=== PATIENT | female | born 1950 | race Caucasian/White ===

== ENCOUNTER 2017-01-26 05:45 | Inpatient (IN) | payer OTHER ==
[~2017-01-26] VITALS: Ht 165.1 cm; Wt 129.3 kg
--- NOTE | 2017-01-26 05:45 | NUR ---
PT BIB RA WITH A C/O ABD PAIN THAT RADIATES TO THE CHEST AND LEFT ARM. PT IS NOT ABLE TO AMBULATED DUE TO A TORN LIGAMENT. PT HAS A LT KNEE IMMOBILIZER. PT IS ON THE MONITOR AND CONTINUOUS PULSE OX.
[2017-01-26 06:13] LABS: BASOPHILS % (AUTO) 0.2 % (0.0-2.0); EOSINOPHILS # (AUTO) 0.2 /CMM (0.0-0.7); EOSINOPHILS % (AUTO) 2.5 % (0.0-6.0); HEMATOCRIT 47 % (33-45); LYMPHOCYTES # (AUTO) 1.3 /CMM (0.8-4.8); LYMPHOCYTES % (AUTO) 19.5 % (20.0-44.0); MEAN CORPUSCULAR HEMOGLOBIN 30 PG (26.0-33.0); MEAN CORPUSCULAR HGB CONC 34 g/dl (31.0-36.0); MEAN CORPUSCULAR VOLUME 87 fL (82-100); MONOCYTES # (AUTO) 0.5 /CMM (0.1-1.30); MONOCYTES % (AUTO) 7.7 % (2.0-12.0); NEUTROPHILS # (AUTO) 4.8 /CMM (1.8-8.9); NEUTROPHILS % (AUTO) 70.1 % (43.0-81.0); PLATELET COUNT (AUTO) 263 /CMM (150-450); RDW COEFFICIENT OF VARIATION 13.9 (11.5-15.0); RED BLOOD CELL COUNT(AUTO) 5.44 MIL/uL (4.0-5.2); WHITE BLOOD COUNT (AUTO) 6.9 K/uL (4.3-11.0)
[2017-01-26 06:22] LABS: CALCIUM, SERUM 9.4 mg/dL (8.5-10.1); CARBON DIOXIDE 34 mmol/L (21-32); CHLORIDE 103 mmol/L (98-107); CREATININE 0.9 mg/dL (0.6-1.3); GLUCOSE 121 mg/dL (74-106); POTASSIUM 4.4 mmol/L (3.5-5.1); SODIUM SERUM 142 mmol/L (136-145); UREA NITROGEN, BLOOD 11 mg/dL (7-18)
[2017-01-26 06:31] LABS: INR 0.96 (0.87-1.13); PROTHROMBIN TIME 10.3 SECS (9.5-12.7); TROPONIN I < 0.017 ng/mL (0.00-0.056)
[2017-01-26] MEDS ORDERED: CT SWABBABLE VALVE TRANS SET 1 EA INFUS.SET MC ONE (06:32)
[2017-01-26] MEDS ORDERED: IOHEXOL-300 100 ML VIAL IV ONE (06:32)
[2017-01-26] MEDS ORDERED: IV NS 0.9% 250 ML IV ONE (06:32)
--- NOTE | 2017-01-26 06:32 | NUR ---
PT IS ON A MECHANICAL SOFT LEDA DIET PER [facility] PAPERWORK.
--- NOTE | 2017-01-26 06:40 | NUR ---
CXR IN PROGRESS AT THE BEDSIDE.
--- NOTE | 2017-01-26 06:43 | NUR ---
SENIOR USER EXPERIENCE ARCHITECT AT BEDSIDE
[2017-01-26] MEDS ORDERED: MAG-55 PO (06:44)
[2017-01-26] MEDS ORDERED: GLIP10TA11 PO (06:44)
[2017-01-26] MEDS ORDERED: METO50TA3 PO (06:44)
[2017-01-26] MEDS ORDERED: FERR325T28 PO (06:44)
[2017-01-26] MEDS ORDERED: GABA-532 PO (06:44)
[2017-01-26] MEDS ORDERED: HYDR-552 PO (06:44)
[2017-01-26] MEDS ORDERED: METF500T4 PO (06:44)
[2017-01-26] MEDS ORDERED: ASPI-991 PO (06:44)
[2017-01-26] MEDS ORDERED: LOPE-156 PO (06:44)
[2017-01-26] MEDS ORDERED: LEVO50TA PO (06:44)
[2017-01-26] MEDS ORDERED: CRAN500C5 PO (06:44)
[2017-01-26] MEDS ORDERED: ONDA4TAB8 PO (06:44)
[2017-01-26] MEDS ORDERED: LISI-607 PO (06:44)
[2017-01-26] MEDS ORDERED: DOCUSATE-SENNA (06:44)
--- NOTE | 2017-01-26 06:45 | NUR ---
PT LEFT FOR RADIOLOGY VIA [facility].
--- NOTE | 2017-01-26 07:01 | NUR ---
PT RETURNED FROM CT.
--- NOTE | 2017-01-26 07:21 | NUR ---
REPORT GIVEN TO FADIA FOR DEREK.
[2017-01-26] MEDS ORDERED: HYDROCODONE/APAP 5/325MG 1 EACH TABLET PO ONE (07:30)
--- NOTE | 2017-01-26 07:40 | NUR ---
Patient is resting comfortably in bed with eyes closed. Easily aroused. VSS
[2017-01-26] MEDS ORDERED: HYDROCODONE/APAP 5/325MG 1 EACH TABLET ONE (07:41)
--- NOTE | 2017-01-26 08:00 | NUR ---
PT MEDICATED ORDERED.
--- NOTE | 2017-01-26 08:27 | NUR ---
panel on-call paged
--- NOTE | 2017-01-26 08:28 | NUR ---
REPORT GIVEN TO ERIC OLSON FOR TELE [id number]
--- NOTE | 2017-01-26 09:05 | NUR ---
INTENSIVE CARE AMBULANCE PARAMEDIC ADM NOTES RECEIVED PATIENT FROM ER VIA GURNEY AOX3, ABLE TO MAKE NEEDS KNOWN. WITH ADM DX. OF CHEST PAIN, ATTACHED TO TELE MONITORING SR HR 66. ORIENTED HER TO HER ROOM, CALL LIGHT WITHIN REACH. DR. TORRE MADE AWARE PENDING ADMISSION ORDERS. NO BELONGINGS. WILL CONTINUE TO MONITOR.
[2017-01-26 09:15] VITALS: BP 146/79
[2017-01-26 10:00] VITALS: BP 146/79
[2017-01-26] MEDS ORDERED: LOPERAMIDE HCL (2 MG CAP) 2 MG CAPSULE PO PRN (10:00)
[2017-01-26] MEDS ORDERED: Medication Not On Formulary EA (Cranberry Extract (Cranberry Concentrate) 1,680 MG) PO SCH (10:00)
[2017-01-26 10:10] LABS: THYROID STIMULATING HORMONE 3.368 uIU/mL (0.358-3.74)
[2017-01-26] MEDS ORDERED: MAG HYDROX/AL HYDROX/SIMETH 30 ML UDC PO PRN ×2 (10:30→11:00)
--- NOTE | 2017-01-26 10:30 | NUR ---
COMMUNITY HEALTH WORKER NOTES SEE AND EXAMINED BY DR. SMITH WITH NEW ORDERS MADE AND CARRIED OUT.
[2017-01-26 10:33] LABS: MAGNESIUM 1.8 mg/dL (1.8-2.4); PHOSPHORUS 3.9 mg/dL (2.5-4.9)
--- NOTE | 2017-01-26 10:50 | NUR ---
HOTEL FRONT DESK AGENT NOTES SEEN AND EXAMINED BY DR. TORRE, ORDERS MADE AND CARRIED OUT.
[2017-01-26] MEDS ORDERED: MAGNESIUM HYDROXIDE 30 ML UDC PO PRN (11:00)
[2017-01-26] MEDS ORDERED: HYDROCODONE/APAP 5/325MG 1 EACH TABLET PO PRN (11:00)
[2017-01-26] MEDS ORDERED: ACETAMINOPHEN 325 MG TABLET PO PRN (11:00)
[2017-01-26] MEDS ORDERED: ONDANSETRON HCL/PF 4 MG/2 ML VIAL IVP PRN (11:00)
[2017-01-26] MEDS ORDERED: ZOLPIDEM TARTRATE 5 MG TABLET PO PRN (11:00)
[2017-01-26] MEDS ORDERED: Z GUARD REMEDY 2 OZ OINT TP PRN (11:00)
--- NOTE | 2017-01-26 11:00 | NUR ---
DIGITAL MARKETER NOTES ALL DUE MEDS GIVEN. ORDERED
[2017-01-26] MEDS: GABAPENTIN 100 MG CAPSULE PO SCH ×3 (11:01→16:17)
[2017-01-26] MEDS: FERROUS SULFATE (325 MG) 325 MG/TAB TABLET PO SCH (11:01)
[2017-01-26] MEDS: LEVOTHYROXINE SODIUM 50 MCG TABLET PO SCH (11:01)
[2017-01-26] MEDS: ASPIRIN EC 81 MG TABLET.DR PO SCH (11:01)
[2017-01-26] MEDS: LISINOPRIL (5MG) 5 MG TABLET PO SCH (11:01)
[2017-01-26] MEDS: METFORMIN 500 MG TABLET PO SCH ×2 (11:02→16:17)
[2017-01-26] MEDS: METOPROLOL TARTRATE 50 MG TABLET PO SCH ×2 (11:02→16:17)
[2017-01-26] MEDS: ENOXAPARIN SODIUM 40 MG/0.4 ML DISP.SYRIN SQ SCH (11:02)
[2017-01-26] MEDS: glipiZIDE 10 MG TABLET PO SCH ×2 (11:02→16:17)
[2017-01-26 12:00] VITALS: BP 138/70
[2017-01-26] MEDS ORDERED: ONDANSETRON 4 MG TAB.RAPDIS PO PRN (12:00)
[2017-01-26 16:00] VITALS: BP 130/68
[2017-01-26] MEDS ORDERED: BLOOD SUGAR DIAGNOSTIC 1 EACH STRIP IN ONE (17:00)
--- NOTE | 2017-01-26 18:27 | NUR ---
LEAD MANUFACTURING ENGINEER NOTES ALL NEEDS ATTENDED AND ANTICIPATED. ENDORSED TO INCOMING SHIFT FOR CONTINUITY OF CARE
--- NOTE | 2017-01-26 18:40 | NUR ---
QA TEST ANALYST NOTES C/O NO BM X 2 DAYS. MOM PRN GIVEN ORDERED.
--- NOTE | 2017-01-26 19:35 | NUR ---
RN OPENING NOTES RECEIVED REPORT FROM LORIN MABRY RN. FOUND Pt AWAKE, RESTING IN BED. ON TELE SR 60's. Pt IS A/OX3, VERBAL , ABLE TO MAKE NEEDS KNOWN. NO S/S OF ACUTE DISTRESS OR SOB NOTED. NO C/O SEVERE CHEST PAIN AT THIS TIME. DOES NOT WANT PAIN MEDS AT THIS TIME. IV ACCESS ON RAC #20G, SL. SAFETY MEASURES IN PLACE. BED LOW, LOCKED, HOB ELEVATED, SIDE RAILS UP, CALL LIGHT AND BEDSIDE TABLE WITHIN REACH. WILL CONTINUE TO MONITOR Pt THROUGHOUT THE NIGHT FOR SAFETY.
[2017-01-26 20:00] VITALS: BP 157/86
[2017-01-26] MEDS: HYDROCODONE/APAP 5/325MG 1 EACH TABLET PO PRN (23:55)
[2017-01-27] VITALS: BP 134/68
[2017-01-27 04:00] VITALS: BP 125/56
--- NOTE | 2017-01-27 06:37 | NUR ---
RN CLOSING NOTES NO SIGNIFICANT CHANGES DURING THE SHIFT. ALL NEEDS MET AND ATTENDED TO. SAFETY MEASURES IN PLACE. WILL ENDORSE TO DAYSHIFT RN FOR Pt's DEREK.
--- NOTE | 2017-01-27 07:30 | NUR ---
COMMUNITY DEVELOPMENT MANAGER NOTES RECEIVED PATIENT ASLEEP, RESTING COMFORTABLY IN BED, BREATHING EVEN AND NON LABORED, NO S/S OF ANY RESP DISTRESS OR DISCOMFORT NOTED. CALL LIGHT WITHIN REACH, BED IN LOWEST POSITION FOR SAFETY MEASURES. WILL CONTINUE TO MONITOR.
[2017-01-27 07:33] LABS: ALANINE AMINOTRANSFERASE 18 U/L (12-78); ALBUMIN 2.9 g/dL (3.4-5.0); ALKALINE PHOSPHATASE 77 U/L (46-116); ASPARTATE AMINOTRANSFERASE 25 U/L (15-37); BASOPHILS % (AUTO) 0.6 % (0.0-2.0); BILIRUBIN,TOTAL 0.5 mg/dL (0.2-1.0); CALCIUM, SERUM 9.4 mg/dL (8.5-10.1); CARBON DIOXIDE 28 mmol/L (21-32); CHLORIDE 102 mmol/L (98-107); CREATININE 0.8 mg/dL (0.6-1.3); EOSINOPHILS # (AUTO) 0.2 /CMM (0.0-0.7); EOSINOPHILS % (AUTO) 2.2 % (0.0-6.0); GLUCOSE 93 mg/dL (74-106); HEMATOCRIT 49 % (33-45); HEMOGLOBIN 16.6 g/dL (11.5-14.8); LYMPHOCYTES # (AUTO) 1.8 /CMM (0.8-4.8); LYMPHOCYTES % (AUTO) 24.2 % (20.0-44.0); MAGNESIUM 2.1 mg/dL (1.8-2.4); MEAN CORPUSCULAR HEMOGLOBIN 30 PG (26.0-33.0); MEAN CORPUSCULAR HGB CONC 34 g/dl (31.0-36.0); MEAN CORPUSCULAR VOLUME 88 fL (82-100); MONOCYTES # (AUTO) 0.6 /CMM (0.1-1.30); MONOCYTES % (AUTO) 7.7 % (2.0-12.0); NEUTROPHILS # (AUTO) 4.9 /CMM (1.8-8.9); NEUTROPHILS % (AUTO) 65.3 % (43.0-81.0); PHOSPHORUS 3.5 mg/dL (2.5-4.9); PLATELET COUNT (AUTO) 256 /CMM (150-450); POTASSIUM 4.1 mmol/L (3.5-5.1); RDW COEFFICIENT OF VARIATION 13.4 (11.5-15.0); RED BLOOD CELL COUNT(AUTO) 5.64 MIL/uL (4.0-5.2); SODIUM SERUM 140 mmol/L (136-145); UREA NITROGEN, BLOOD 15 mg/dL (7-18); WHITE BLOOD COUNT (AUTO) 7.5 K/uL (4.3-11.0)
[2017-01-27] MEDS: PANTOPRAZOLE 40 MG TABLET.DR PO SCH (07:59)
[2017-01-27 08:00] VITALS: BP_SYST 129; BP_DIAS 62; BP_DIAS 65
--- NOTE | 2017-01-27 08:00 | NUR ---
ENGRAVER OPTICAL FRAMES NOTES SEEN AND EXAMINED BY DR. SMITH WITH NEW ORDERS MADE AND CARRIED OUT. PT IS FOR AURY SCAN/STRESS TEST IMELDA. CONSENT OBTAINED AND SIGNED. TELE MONITORING DISCONTINUED.
[2017-01-27 08:11] LABS: TROPONIN I < 0.017 ng/mL (0.00-0.056)
[2017-01-27] MEDS: LEVOTHYROXINE SODIUM 50 MCG TABLET PO SCH (08:22)
[2017-01-27] MEDS: glipiZIDE 10 MG TABLET PO SCH (08:22)
[2017-01-27] MEDS: ASPIRIN EC 81 MG TABLET.DR PO SCH (08:22)
[2017-01-27] MEDS: GABAPENTIN 100 MG CAPSULE PO SCH ×3 (08:22→16:39)
[2017-01-27] MEDS: LISINOPRIL (5MG) 5 MG TABLET PO SCH (08:23)
[2017-01-27] MEDS: FERROUS SULFATE (325 MG) 325 MG/TAB TABLET PO SCH (08:23)
[2017-01-27] MEDS: METFORMIN 500 MG TABLET PO SCH (08:23)
[2017-01-27] MEDS: METOPROLOL TARTRATE 50 MG TABLET PO SCH ×2 (08:24→16:41)
[2017-01-27] MEDS ORDERED: BLOOD SUGAR DIAGNOSTIC 1 EACH STRIP IN SCH (09:00)
[2017-01-27] MEDS ORDERED: DEXTROSE 50%-WATER 50 ML DISP.SYRIN IV PRN (10:30)
--- NOTE | 2017-01-27 11:00 | NUR ---
MS RN NOTES DURING MORNING BED BATH, PT NOTED WITH RIGHT LOWER ABD'L SKIN TEAR, PT STATED THAT SHE SUSTAINED THE SKIN TEAR WHEN SHE WAS AT [facility]. PICTURE TAKEN AND PLACED IN THE CHART, WOUND TREATMENT STARTED. DENIES ANY PAIN AT THIS TIME. WILL CONTINUE TO MONITOR.
[2017-01-27] MEDS: ENOXAPARIN SODIUM 40 MG/0.4 ML DISP.SYRIN SQ SCH (12:19)
[2017-01-27] MEDS: BLOOD SUGAR DIAGNOSTIC 1 EACH STRIP IN SCH ×3 (12:34→21:00)
[2017-01-27] MEDS: INSULIN REGULAR, HUMAN 100 UNIT/ML 3 ML VIAL SQ PRN ×2 (12:35→17:01)
--- NOTE | 2017-01-27 12:35 | NUR ---
MS RN NOTES BLOOD SUGAR 60MG/DL. PATIENT REFUSED D50%. ORANGE JUICE GIVEN. WILL CONTINUE TO MONITOR.
[2017-01-27 16:00] VITALS: BP 114/64
--- NOTE | 2017-01-27 17:01 | NUR ---
MS RN NOTES BLOOD SUGAR 76 ORANGE JUICE GIVEN. WILL CONTINUE TO MONITOR. NO S/S OF HYPOGLYCEMIA NOTED.
--- NOTE | 2017-01-27 19:35 | NUR ---
RN OPENING NOTES RECEIVED REPORT FROM BERTMOLIANNA PADGETT. FOUND Pt AWAKE, RESTING IN BED. NO S/S OF ACUTE DISTRESS OR SOB NOTED. Pt C/O PAIN 8/10 ON LOWER BACK, WILL ADMINISTER PAIN MED. Pt IS SCHEDULED FOR A STRESS TEST TOMORROW MORNING, CONSENT FORM SIGNED. WILL BE NPO STARTING AT MIDNIGHT. IV ACCESS ON RAC #20G, SL. SAFETY MEASURES IN PLACE. BED LOW, LOCKED, HOB ELEVATED, SIDE RAILS UP, CALL LIGHT AND BEDSIDE TABLE WITHIN REACH. WILL CONTINUE TO MONITOR Pt THROUGHOUT THE NIGHT FOR SAFETY.
[2017-01-27 20:00] VITALS: BP 122/67
[2017-01-27] MEDS: HYDROCODONE/APAP 5/325MG 1 EACH TABLET PO PRN (20:58)
--- NOTE | 2017-01-27 22:00 | NUR ---
BG 97. NO INSULIN COVERAGE NEEDED. OJ AT BEDSIDE.
--- NOTE | 2017-01-28 06:30 | NUR ---
BG 116. NO INSULIN COVERAGE NEEDED.
--- NOTE | 2017-01-28 06:36 | NUR ---
RN CLOSING NOTES NO SIGNIFICANT CHANGES DURING THE SHIFT. NO S/S OF ACUTE DISTRESS OR SOB NOTED DURING THE NIGHT. ALL NEEDS MET AND ATTENDED TO. SAFETY MEASURES IN PLACE. WILL ENDORSE TO DAYSHIFT RN FOR Pt's DEREK.
[2017-01-28] MEDS: BLOOD SUGAR DIAGNOSTIC 1 EACH STRIP IN SCH ×3 (06:49→17:27)
--- NOTE | 2017-01-28 07:15 | NUR ---
RN MS NOTES PATIENT IN BED, ALERT AND ORIENTED, SCHEDULED FOR A [place] NUCLEAR STRESS TEST, CURRENTLY ON NPO, WILL HOLD BREAKFAST UNTIL AFTER STRESS TEST, PATIENT AWARE AND UNDERSTANDS, DENIES PAIN AT THIS TIME, NEEDS ATTENDED AND MET, SAFETY MEASURES IN PLACED, CALL LIGHT WITHIN REACH, WILL CONTINUE TO MONITOR.
[2017-01-28] MEDS: PANTOPRAZOLE 40 MG TABLET.DR PO SCH (07:30)
[2017-01-28 08:00] VITALS: BP 126/71
[2017-01-28] MEDS ORDERED: REGADENOSON 0.4 MG/5 ML DISP.SYRIN IVP ONE (08:00)
[2017-01-28] MEDS ORDERED: NEOMY SULF/BACITRAC ZN/POLY 15 GM TUBE TP SCH (09:00)
--- NOTE | 2017-01-28 09:30 | NUR ---
WHITNEY MS NOTES PATIENT SEEN BY DR. CARROLL AND GAVE NEW ORDERS, ORDER NOTED AND CARRIED OUT. PATIENT RECEIVED NORCO FOR PAIN PRIOR TO PHYSICAL THERAPY. FAMILY AT BEDSIDE. Addendum: 01/28/17 at 1049 by AYE BISHOP RN WRONG ENTRY, DIFFERENT PATIENT.
[2017-01-28] MEDS: ASPIRIN EC 81 MG TABLET.DR PO SCH (10:17)
[2017-01-28] MEDS: METOPROLOL TARTRATE 50 MG TABLET PO SCH ×2 (10:18→17:32)
[2017-01-28] MEDS: GABAPENTIN 100 MG CAPSULE PO SCH ×3 (10:18→17:26)
[2017-01-28] MEDS: LEVOTHYROXINE SODIUM 50 MCG TABLET PO SCH (10:18)
[2017-01-28] MEDS: LISINOPRIL (5MG) 5 MG TABLET PO SCH (10:20)
[2017-01-28] MEDS: HYDROCODONE/APAP 5/325MG 1 EACH TABLET PO PRN (10:37)
[2017-01-28] MEDS: ENOXAPARIN SODIUM 40 MG/0.4 ML DISP.SYRIN SQ SCH (10:42)
--- NOTE | 2017-01-28 10:49 | NUR ---
RN MS NOTES PATIENT CAME BACK FROM NUCLEAR SCAN, ATE BREAKFAST AND RECEIVED ALL DUE MEDICATIONS, PHYSICAL THERAPY IS NOW WORKING WITH HER.
[2017-01-28] MEDS: INSULIN REGULAR, HUMAN 100 UNIT/ML 3 ML VIAL SQ PRN (12:30)
[2017-01-28] MEDS ORDERED: MORPHINE SULFATE INJ 2 MG/ML DISP.SYRIN IV PRN (13:00)
[2017-01-28 16:00] VITALS: BP 98/44
[2017-01-28 17:32] VITALS: BP 126/71
--- NOTE | 2017-01-28 18:55 | NUR ---
INSTRUCTOR WATCH ASSEMBLY NOTE PATIENT DISCHARGED TO HOME PER PATIENT'S REQUEST, DME GIVEN WALKER AND COMMODE, PATIENT VERBALIZED UNDERSTANDING OF DISCHARGE INSTRUCTIONS, IN STABLE CONDITION, PIV REMOVED, ALL BELONGINGS TAKEN HOME, SKIN ASSESSMENT COMPLETED, RIGHT ABDOMINAL SKIN TEAR WITH PHOTO IN CHART, PATIENT LEFT THE FACILITY VIA [facility] IN NO DISTRESS.
== END 2017-01-28 18:55 | disposition home or self-care (01) | DRG 243 ==
LOC: ER 05:49 → TELE 08:39 → MED 01-27 08:42
DX: K21.9 Gastro-esophageal reflux disease without esophagitis (principal); E43 Unspecified severe protein-calorie malnutrition; E11.649 Type 2 diabetes mellitus with hypoglycemia without coma; Z68.41 Body mass index [BMI] 40.0-44.9, adult; I10 Essential (primary) hypertension; E66.01 Morbid (severe) obesity due to excess calories; I25.10 Atherosclerotic heart disease of native coronary artery without angina pectoris; Z85.42 Personal history of malignant neoplasm of other parts of uterus; Z79.84 Long term (current) use of oral hypoglycemic drugs; Z90.710 Acquired absence of both cervix and uterus; R53.1 Weakness; S83.92XA Sprain of unspecified site of left knee, initial encounter; X58.XXXA Exposure to other specified factors, initial encounter; Y93.9 Activity, unspecified; Y92.129 Unspecified place in nursing home as the place of occurrence of the external cause; G62.9 Polyneuropathy, unspecified; E03.9 Hypothyroidism, unspecified; M19.90 Unspecified osteoarthritis, unspecified site; M48.00 Spinal stenosis, site unspecified; K57.30 Diverticulosis of large intestine without perforation or abscess without bleeding; K80.20 Calculus of gallbladder without cholecystitis without obstruction; R91.1 Solitary pulmonary nodule
CPT/HCPCS: 36415; 71010-TC; 80048-TC; 80053-TC; 80061-TC; 82306; 82962-TC; 83735-TC; 84100-TC; 84439-TC; 84443-TC; 84484-TC; 85025-TC; 85730-TC; 87081-TC; 93307-TC; 97001-TC; 97003-TC; 97110-TC; 97116-TC; 97530-TC; A4606; A9502; J1650; J1815; J2270; J2785; J7050; Q9967; Z7610